=== PATIENT | female | born 1955 | race Two or more races ===

== ENCOUNTER 2022-10-26 08:52 | Emergency (ER) | payer MEDICARE, SELFPAY ==
--- NOTE | ~2022-10-26 | US_ITS ---
EXAMINATION: US ABDOMEN LIMITED CLINICAL INFORMATION: Right upper quadrant tenderness. COMPARISON: None TECHNIQUE: Real-time imaging of the right upper quadrant abdominal viscera. FINDINGS: PANCREAS: Normal. LIVER: The liver is normal in size. The liver contour is normal. Parenchymal echogenicity is normal. There is a 1.1 x 0.8 x 1.2 cm simple cyst in the right lobe of the liver. There is no intrahepatic biliary duct dilatation seen. GALLBLADDER: Gallbladder is upper normal in size. There is a large gallstone in the neck of the gallbladder measuring approximately 2.8 cm. The gallbladder wall appears thickened measuring up to 0.5 cm. There is gallbladder wall edema. There is echogenic nonmobile material, partially calcified, adjacent to the gallbladder wall question representing tumefactive sludge and small stones. It is difficult to exclude gallbladder wall mass and calcification. COMMON BILE DUCT: Normal in caliber measuring 0.5 cm in diameter. RIGHT KIDNEY: Normal. No hydronephrosis. No renal calculi or focal parenchymal lesions. The kidney measures 9.6 cm in maximum dimension. FREE FLUID: None. US/US abdomen limited IMPRESSION: Upper normal-size gallbladder with large gallstone in the neck of the gallbladder and abnormal appearing gallbladder wall. Appearance is suggestive of acute cholecystitis. Question tumefactive sludge and small stones adherent to the gallbladder wall versus gallbladder wall mass and calcification. Small liver cyst. Findings will be communicated by the [place] work flow timber framer helper.
[2022-10-26 08:56] VITALS: BP 154/75; PULSE 96; RESP 16; TEMP 36.7; O2SAT 95; BMI 30.9
[2022-10-26 09:20] LABS: Hematocrit 40.2 % (37.0-47.0); Mean Corpuscular HGB Conc 32.3 g/dl (31.0-35.0); Mean Corpuscular Hemoglobin 28.4 pg (27.0-33.0); Mean Corpuscular Volume 87.8 fL (80.0-98.0); PLT CLUMP 1; Red Blood Count 4.58 X10*6/uL (4.20-5.50); Red Cell Distribution Width 12.6 % (11.0-16.0); WBC ABN SCTR FOR CBC 1
[2022-10-26 09:37] LABS: Alanine Aminotransferase 14 U/L (0-31); Albumin Level 4.1 g/dL (3.5-5.0); Alkaline Phosphatase 58 U/L (39-117); Anion Gap 13 (12-20); Aspartate Amino Transferase 16 U/L (5-31); Band Neutrophils Percent 0 % (3-5); Bilirubin Direct 0.2 mg/dL (0.0-0.5); Bilirubin Total 0.4 mg/dL (0.0-1.0); Blood Urea Nitrogen 14 mg/dL (9-16); Calcium 10.3 mg/dL (8.4-10.2); Carbon Dioxide 30 mmol/L (22-29); Chloride 100 mmol/L (96-108); Estimated Glomerular Filt Rate > 60; Glucose Random 129 mg/dL (60-115); Lymphocytes Percent Manual 34 % (20-40); Monocytes Percent Manual 2 % (2-11); Neutrophils Percent Manual 64 % (45-73); Potassium 3.4 mmol/L (3.3-5.1); Sodium 140 mmol/L (135-145); Total Protein 7.4 g/dL (6.5-8.0)
[2022-10-26 09:40] LABS: Lymphocytes Absolute Manual 2.9 X10*3/uL (1.2-4.9); Monocytes Absolute Manual 0.2 X10*3/uL (0.1-1.2); Neutrophils Absolute Manual 5.4 X10*3/uL (2.0-8.3); Platelet Count 154 X10*3/uL (160-400); Platelet Estimate NORMAL (NORMAL); Platelet Morphology Comment NORMAL; RBC Morphology NORMAL; White Blood Count 8.5 X10*3/uL (4.8-10.8)
[2022-10-26 10:21] VITALS: BP 154/68; PULSE 77; RESP 16; O2SAT 98
--- NOTE | 2022-10-26 10:23 | PC.NURSE ---
Addendum entered by Susanne Garcia 10/26/22 11:42: all needs met at this time; awaiting imaging; denies questions/concerns; daughter at bedside. call [place]ilton within reach. Original Note: pt axox4, vss, respirations even and unlabored, sats 98% on RA, skin warm and dry color appropriate to ethnicity. Greek speaking- heating and ventilating drafter to bedside. sensor operator cecily to bedside. pt reports nausea, diarrhea, burning sensation in stomach after eating x 1 wk. +bsx4; no abd. distention/tenderness upon palpation.
--- NOTE | 2022-10-26 10:29 | ED.GENADULT ---
HPI - General Adult General Chief complaint: Nausea/Vomiting/Diarrhea Stated complaint: Nausea Vomiting Diarrhea Time Seen by Provider: 10/26/22 10:08 Source: patient, family (daughter) and talent acquisition consultant Mode of arrival: ambulatory Limitations: language barrier History of Present Illness HPI narrative: Patient is a 67-year-old Hungarian-speaking female with history of HTN, fatty liver presenting to the emergency department with 1 week of right upper quadrant abdominal pain, nausea, vomiting, diarrhea, decreased appetite and weight loss. States has lost 9 pounds over the past week. Denies fevers. Denies blood in emesis or stool, denies dark, tarry stool. Denies chest pain or shortness of breath. Denies dizziness/lightheadedness or syncope. Denies prior abdominal surgeries. States symptoms worsen with eating spicy/greasy foods. Symptoms began after returning from [place]. [place] in [place]. MD complaint: abdominal pain, vomiting, diarrhea Onset (ago): week(s) Location: abdomen Radiation: non-radiation Severity: severe Quality: sharp Pain Consistency: constant Relieving factors: rest Exacerbating factors: other (palpation) Associated symptoms: loss of appetite, nausea/vomiting and other (diarrhea, weight loss) Treatments prior to arrival: none Related Data Home Medications Medication Instructions Recorded Confirmed atorvastatin 40 mg tablet 40 mg PO BEDTIME 10/26/22 10/26/22 hydrochlorothiazide 25 mg tablet 25 mg PO DAILY 10/26/22 10/26/22 losartan 50 mg tablet 50 mg PO DAILY 10/26/22 10/26/22 metformin 500 mg tablet 500 mg PO DAILY 10/26/22 10/26/22 Previous Rx's Medication Instructions Recorded ondansetron 4 mg disintegrating 4 mg PO Q8H PRN nausea and 10/26/22 tablet vomiting #12 tabs Allergies Allergy/AdvReac Type Severity Reaction Status Date / Time No Known Allergies Allergy Verified 10/26/22 09:03 Review of Systems Review of Systems: As per HPI. Yes all other systems are reviewed and are negative Constitutional: Constitutional: Reports as per HPI [facility] Social History Social History Alcohol intake: current Alcohol intake frequency: holidays/special occasions only Smoked in Last 30 Days: No Use of substances other than those prescribed or required for medical reasons: No Advance Directives: No Advance Directives Information Provided: Yes Physical Exam ED Vital Signs: Vital Signs - 24 hr 10/26/22 08:56 10/26/22 10:21 10/26/22 14:00 Temperature 98.0 F 98.2 F Pulse Rate 96 77 82 Respiratory Rate 16 16 16 Blood Pressure 154/75 H 154/68 H 165/86 H Pulse Oximetry 95 98 96 Oxygen Delivery Method Room Air Room Air Room Air BMI result Body Mass Index 30.9 Vital signs have been reviewed and appear to be correct. Blood pressure elevated. Heart rate normal. Respiratory rate normal. Temperature normal. Oxygen saturation normal. Const General: cooperative, healthy appearing and no acute distress Orientation/consciousness: oriented to person, oriented to place, oriented to time and patient oriented x3 Limitations: no limitations HENMT Head: Yes normocephalic and Yes atraumatic Ears: external ears normal General nose exam: Normal external nose present Face and sinus: Yes face symmetric Mouth: oropharynx normal and moist mucous membranes Throat: Yes uvula midline Eyes Pupils: Equal, round and reactive pupils present Neck Neck: Yes normal visual inspection and Yes supple Resp Effort & Inspection: normal respiratory effort and able to speak in complete sentences Auscultation: clear to auscultation bilaterally Cardio Rate: regular rate Rhythm: regular rhythm Heart sounds: S1 normal heart sound present and S2 normal heart sound present GI Inspection: Yes normal to inspection Palpation (GI): Soft to palpation, Tenderness to palpation present (GI) in the RUQ, no guarding and No Rebound tenderness present Auscultation: normoactive bowel sounds General: Yes no CVA tenderness Back/Spine/Pelvis Back: no CVA tenderness Skin General skin exam: elasticity normal and turgor normal Neuro General: oriented to person, oriented to place, oriented to time, patient oriented x3, moves all extremities, no focal motor deficits and CN's II-XI intact bilaterally Cranial nerves: Yes Equal, round and reactive pupils present Cognition (Neuro): normal cognition Extrem General: Yes full ROM, Yes no pedal edema and Yes no calf tenderness Psych Mental Status: mental status grossly normal Affect: normal affect Thought process: Normal thought process present Medical Decision Making Medical Decision Making MDM Narrative: Patient is a 67-year-old Hungarian-speaking female with history of HTN, fatty liver presenting to the emergency department with 1 week of right upper quadrant abdominal pain, nausea, vomiting, diarrhea, decreased appetite and weight loss. On exam patient is awake, A+Ox3, VS WNL, afebrile, normal neurological exam without focal deficits, abdomen soft, tender to palpation right upper quadrant, otherwise nontender, no guarding or rebound tenderness. Given reported symptoms and physical exam findings, initial differential includes biliary colic, acute cholecystitis, choledocholithiasis, gastroenteritis. Plan: labs, RUQ U/S, UA. Labs notable for no leukocytosis, LFTs normal, mildly elevated lipase likely related to known fatty liver disease. UA shows 2+ leukocytes, 6-10 WBCs, 1+ bacteria however patient denies any urinary symptoms. Ultrasound notable for large stone in the neck of the gallbladder suggestive of acute cholecystitis, also question sludge and small stones adherent gallbladder wall versus gallbladder wall mass/calcification. My interpretation is in agreement with the radiologist's interpretation. [place] text to Dr. Hilario. 14:24 Dr. Hilario states that he saw patient with assistance of talent acquisition consultant. Patient reports known history of gallstones. He feels symptoms are more likely related to acute gastroenteritis rather than acute cholecystitis and patient is stable for discharge home. Discussed with patient to ensure adequate fluid intake. Will prescribe Zofran for nausea. Can use immodium for diarrhea. Return precautions discussed at bedside. Patient and daughter verbalized understanding of and agreement with plan. Differential Diagnosis Differential Diagnoses: The differential diagnosis associated with the presentation includes As per MDM. Admission/Observation Consideration of admission/observation: Escalation of care including admission/observation considered Consult Healthcare Provider Management of the patient was discussed with: Food Service (Dr. Hilario) Lab Data [facility] Lab Attestation statement: I reviewed the patient's lab results. As per MDM. 10/26/22 09:11 10/26/22 09:11 Labs: Lab Results 10/26/22 10/26/22 10/26/22 Range/Units 09:11 09:11 11:25 WBC 8.5 (4.8-10.8) X10*3/uL RBC 4.58 (4.20-5.50) X10*6/uL Hgb 13.0 (12.0-16.0) g/dl Hct 40.2 (37.0-47.0) % MCV 87.8 (80.0-98.0) fL MCH 28.4 (27.0-33.0) pg MCHC 32.3 (31.0-35.0) g/dl RDW 12.6 (11.0-16.0) % Plt Count 154 L (160-400) X10*3/uL MPV Not Reportable Immature Gran % (Auto) Cancelled Neut % (Auto) Cancelled Lymph % (Auto) Cancelled [place] % (Auto) Cancelled Eos % (Auto) Cancelled Baso % (Auto) Cancelled Lymph # (Auto) Cancelled [place] # (Auto) Cancelled Eos # (Auto) Cancelled Baso # (Auto) Cancelled Abs Immat Gran (auto) Cancelled Absolute Neuts (auto) Cancelled Absolute Nucleated RBC 0.000 (0.0-0.012) X10*3/uL Nucleated RBC % (auto) 0.0 (0.0-0.2) /100WBC Neutrophils % (Manual) 64 (45-73) % Band Neutrophils % 0 L (3-5) % Lymphocytes % (Manual) 34 (20-40) % Monocytes % (Manual) 2 (2-11) % Abs Neuts (Manual) 5.4 (2.0-8.3) X10*3/uL Lymphocytes # (Manual) 2.9 (1.2-4.9) X10*3/uL Monocytes # (Manual) 0.2 (0.1-1.2) X10*3/uL Platelet Estimate NORMAL (NORMAL) Plt Morphology Comment NORMAL RBC Morphology NORMAL Sodium 140 (135-145) mmol/L Potassium 3.4 (3.3-5.1) mmol/L Chloride 100 (96-108) mmol/L Carbon Dioxide 30 H (22-29) mmol/L Anion Gap 13 (12-20) BUN 14 (9-16) mg/dL Creatinine 0.79 (0.5-1.4) mg/dL Estim Creat Clear Calc 61.0 Estimated GFR > 60 Random Glucose 129 H (60-115) mg/dL Estimat Average Glucose mg/dL Hemoglobin A1c % % Calcium 10.3 H (8.4-10.2) mg/dL Magnesium 2.0 (1.6-2.6) mg/dL Total Bilirubin 0.4 (0.0-1.0) mg/dL Direct Bilirubin 0.2 (0.0-0.5) mg/dL AST 16 (5-31) U/L ALT 14 (0-31) U/L Alkaline Phosphatase 58 (39-117) U/L Total Protein 7.4 (6.5-8.0) g/dL Albumin 4.1 (3.5-5.0) g/dL Lipase 82 H (8-78) U/L Urine Color Yellow Urine Appearance Clear Urine pH 7.5 (5.0-9.0) Ur Specific [place] 1.015 (1.005-1.025) Urine Protein Negative (Neg-Trace) mg/dL Urine Glucose (UA) Negative (Negative) mg/dL Urine Ketones Negative (Negative) mg/dL Urine Blood Trace H (Negative) Urine Nitrite Negative (Negative) Ur Leukocyte Esterase Moderate (2+) H (Negative) Urine RBC 6-10 H (0-2) /HPF Urine WBC 6-10 H (0-5) /HPF Ur Squamous Epith Cells 6-10 (0-2) /HPF Urine Bacteria 1+ (None Seen) Hyaline Casts 0-2 (0-2) /LPF 10/26/22 Range/Units 14:00 WBC (4.8-10.8) X10*3/uL RBC (4.20-5.50) X10*6/uL Hgb (12.0-16.0) g/dl Hct (37.0-47.0) % MCV (80.0-98.0) fL MCH (27.0-33.0) pg MCHC (31.0-35.0) g/dl RDW (11.0-16.0) % Plt Count (160-400) X10*3/uL MPV Immature Gran % (Auto) Neut % (Auto) Lymph % (Auto) [place] % (Auto) Eos % (Auto) Baso % (Auto) Lymph # (Auto) [place] # (Auto) Eos # (Auto) Baso # (Auto) Abs Immat Gran (auto) Absolute Neuts (auto) Absolute Nucleated RBC (0.0-0.012) X10*3/uL Nucleated RBC % (auto) (0.0-0.2) /100WBC Neutrophils % (Manual) (45-73) % Band Neutrophils % (3-5) % Lymphocytes % (Manual) (20-40) % Monocytes % (Manual) (2-11) % Abs Neuts (Manual) (2.0-8.3) X10*3/uL Lymphocytes # (Manual) (1.2-4.9) X10*3/uL Monocytes # (Manual) (0.1-1.2) X10*3/uL Platelet Estimate (NORMAL) Plt Morphology Comment RBC Morphology Sodium (135-145) mmol/L Potassium (3.3-5.1) mmol/L Chloride (96-108) mmol/L Carbon Dioxide (22-29) mmol/L Anion Gap (12-20) BUN (9-16) mg/dL Creatinine (0.5-1.4) mg/dL Estim Creat Clear Calc Estimated GFR Random Glucose (60-115) mg/dL Estimat Average Glucose 117 mg/dL Hemoglobin A1c % 5.7 % Calcium (8.4-10.2) mg/dL Magnesium (1.6-2.6) mg/dL Total Bilirubin (0.0-1.0) mg/dL Direct Bilirubin (0.0-0.5) mg/dL AST (5-31) U/L ALT (0-31) U/L Alkaline Phosphatase (39-117) U/L Total Protein (6.5-8.0) g/dL Albumin (3.5-5.0) g/dL Lipase (8-78) U/L Urine Color Urine Appearance Urine pH (5.0-9.0) Ur Specific [place] (1.005-1.025) Urine Protein (Neg-Trace) mg/dL Urine Glucose (UA) (Negative) mg/dL Urine Ketones (Negative) mg/dL Urine Blood (Negative) Urine Nitrite (Negative) Ur Leukocyte Esterase (Negative) Urine RBC (0-2) /HPF Urine WBC (0-5) /HPF Ur Squamous Epith Cells (0-2) /HPF Urine Bacteria (None Seen) Hyaline Casts (0-2) /LPF Independent Interpretation I performed an independent interpretation of an: Ultrasound Radiology Impression Discussion of test interpretation with radiology: I have reviewed the radiologist's reading. Independent Historian Clinical information obtained from an independent historian. History obtained from or confirmed by: Other (Daughter) External Record Review External record reviewed: Inpatient record, Office record and Outpatient record Discharge Plan Discharge Clinical Impression: Gastroenteritis, Gallstones Patient Disposition: Home, Self-Care Instructions: Gastroenteritis (DC) Additional Instructions: You have been evaluated in the emergency department today for nausea, vomiting, and diarrhea. Your evaluation suggests that your symptoms are most likely due to a viral illness which will improve on it's own with rest and fluids. Remember to drink plenty of fluids at home. You are being prescribed ondansetron which you can use as per the prescription instructions for nausea. You can also use Immodium for diarrhea which is over the counter. Please follow up with your primary care provider within two days. Return to the emergency department if you experience worsening or uncontrolled pain, inability to tolerate fluids by mouth, difficulty breathing, fevers 100.4? F or greater, recurrent vomiting, or any other concerning symptoms. You can also follow up with gastroenterology for worsening pain. Prescriptions: New ondansetron 4 mg tablet,disintegrating 4 mg PO Q8H PRN (Reason: nausea and vomiting) Qty: 12 0RF No Action losartan 50 mg Tablet 50 mg PO DAILY atorvastatin 40 mg Tablet 40 mg PO BEDTIME metformin 500 mg Tablet 500 mg PO DAILY hydrochlorothiazide 25 mg Tablet 25 mg PO DAILY Referrals: [facility] [place] [place] [facility] [Provider Group] Print Language: Hungarian
[2022-10-26 11:02] LABS: Lipase 82 U/L (8-78)
[2022-10-26 11:36] LABS: Appearance Urine Clear; Color Urine Yellow; Glucose Urine UA Negative (Negative); Leukocyte Esterase Urine Moderate (2+) (Negative); Nitrite Urine Negative (Negative); PH 7.5 (5.0-9.0); Specific Gravity - Urine 1.015 (1.005-1.025); UMIC TRIGGER UACC YES; Urine Blood Trace (Negative); Urine Ketones Negative (Negative); Urine Protein Negative (Neg-Trace)
[2022-10-26 11:40] LABS: Bacteria Urine 1+ (None Seen); Hyaline Casts Urine 0-2 /LPF (0-2); UACC Culture Trigger YES
[2022-10-26 14:00] VITALS: BP 165/86; PULSE 82; RESP 16; TEMP 36.8; O2SAT 96
[2022-10-26 14:31] LABS: Estimated Average Glucose 117 mg/dL; Hemoglobin A1c % 5.7 %
--- NOTE | 2022-10-26 14:33 | PHA.MEDREC ---
Pharmacy Consult ? Medication Reconciliation Pharmacy has completed the medication reconciliation. Utilized representative personal service services. Spoke to patient to confirm meds. Patient attested all RX bottles they had were all their current medications.
--- NOTE | 2022-10-26 14:49 | PM.CNGS ---
History of Present Illness Consult details Consult date: 10/26/22 Reason for consult: gallstones Narrative: The patient is a 67-year-old woman who is South African-speaking only. She is seen with the help of interpretive services with her daughter at her bedside. Patient notes a personal history of gallstones, pre diabetes, hypertension, hypercholesterolemia, arthritis and is visiting from [place] where these diagnoses were made. Via workday director, she reports that she started having nausea, vomiting and diarrhea and then had some abdominal pain. An abdominal ultrasound showing cholelithiasis and edematous gallbladder wall was obtained, but at this time, the patient denies any abdominal pain. The patient and her daughter note that she has been having vomiting and diarrhea for about a week. Patient's past surgical history includes an open tubal Social history is remarkable for occasionally drinking, she denies any nicotine use Review of Systems Review of Systems: Yes all other systems are reviewed and are negative Constitutional: Constitutional: Reports as per [facility] Past Medical History Functional capacity: independent ambulation Social History Social History Alcohol intake: current Alcohol intake frequency: holidays/special occasions only Smoked in Last 30 Days: No Use of substances other than those prescribed or required for medical reasons: No Advance Directives: No Advance Directives Information Provided: Yes Meds Allergies Allergy/AdvReac Type Severity Reaction Status Date / Time No Known Allergies Allergy Verified 10/26/22 09:03 Active Medications: Current Medications Pharmacy Consult (Consult Rx Perform Med Rec) 1 each MISCELLANE ONCE PRN PRN Reason: Consult order Home Medications Medication Instructions Recorded Confirmed Last Taken Type atorvastatin 40 mg tablet 40 mg PO BEDTIME 10/26/22 10/26/22 10/25/22 History hydrochlorothiazide 25 mg tablet 25 mg PO DAILY 10/26/22 10/26/22 10/25/22 History losartan 50 mg tablet 50 mg PO DAILY 10/26/22 10/26/22 10/25/22 History metformin 500 mg tablet 500 mg PO DAILY 10/26/22 10/26/22 10/25/22 History Physical Exam Vital Signs: Vital Signs: Last Vital Signs Temp 98.2 F 10/26/22 14:00 Pulse 82 10/26/22 14:00 Resp 16 10/26/22 14:00 BP 165/86 H 10/26/22 14:00 Pulse Ox 96 10/26/22 14:00 O2 Del Method Room Air 10/26/22 14:00 BMI result Body Mass Index 30.9 On exam, the patient is nontoxic Her sclera anicteric She is in no acute respiratory distress Heart is regular, lungs are clear and equal Abdomen is overweight but soft with no right upper quadrant tenderness. No rebound, rigidity or guarding is noted Results Labs 10/26/22 09:11 10/26/22 09:11 Labs: Abnormal lab results 10/26/22 10/26/22 10/26/22 Range/Units 09:11 09:11 11:25 Plt Count 154 L (160-400) X10*3/uL Band Neutrophils % 0 L (3-5) % Carbon Dioxide 30 H (22-29) mmol/L Random Glucose 129 H (60-115) mg/dL Calcium 10.3 H (8.4-10.2) mg/dL Lipase 82 H (8-78) U/L Urine Blood Trace H (Negative) Ur Leukocyte Esterase Moderate (2+) H (Negative) Urine RBC 6-10 H (0-2) /HPF Urine WBC 6-10 H (0-5) /HPF Short CBC 10/26/22 Range/Units 09:11 WBC 8.5 (4.8-10.8) X10*3/uL Hgb 13.0 (12.0-16.0) g/dl Hct 40.2 (37.0-47.0) % Plt Count 154 L (160-400) X10*3/uL BMP 10/26/22 09:11 Sodium 140 Potassium 3.4 Chloride 100 Carbon Dioxide 30 H BUN 14 Creatinine 0.79 Calcium 10.3 H Liver Function 10/26/22 Range/Units 09:11 Total Bilirubin 0.4 (0.0-1.0) mg/dL Direct Bilirubin 0.2 (0.0-0.5) mg/dL AST 16 (5-31) U/L ALT 14 (0-31) U/L Alkaline Phosphatase 58 (39-117) U/L Albumin 4.1 (3.5-5.0) g/dL Urine 10/26/22 Range/Units 11:25 Urine Color Yellow Urine Appearance Clear Urine pH 7.5 (5.0-9.0) Ur Specific [place] 1.015 (1.005-1.025) Urine Protein Negative (Neg-Trace) mg/dL Urine Glucose (UA) Negative (Negative) mg/dL All other labs normal. Imaging Abdominal ultrasound report/results: report reviewed and image reviewed Assessment and Plan (1) Gastroenteritis: Status: Acute (2) Borderline diabetic: Status: Acute (3) Cholelithiasis: Status: Acute (4) HTN (hypertension): Status: Acute (5) Hypercholesterolemia: Status: Acute Plan Via workday director, the patient endorsed nausea, vomiting and diarrhea. At the time of her exam, there is no right upper quadrant pain to palpation. I suspect the patient has some sort of gastroenteritis and the lack of tenderness on physical exam, lack of leukocytosis is inconsistent after a week is inconsistent with acute cholecystitis. Via workday director, I explained that this likely represents some sort of gastroenteritis and I agree with her physicians in [place] who advised her to continue to watch her gallstones since there is no clear indication for surgery at this time. This was communicated with the ER staff. Time Spent With Patient Time: Total time managing care of this patient today ____ minutes. Procedures Date of Service Date of Service: 10/26/22
== END 2022-10-26 15:28 | disposition home or self-care (01) ==
PROVIDERS: Registered Nurse Emergency; Surgery; Emergency Provider Emergency Medicine
DX: K52.9 Noninfective gastroenteritis and colitis, unspecified (principal); K80.20 Calculus of gallbladder without cholecystitis without obstruction; R10.11 Right upper quadrant pain; E78.00 Pure hypercholesterolemia, unspecified; I10 Essential (primary) hypertension; R73.03 Prediabetes; R11.2 Nausea with vomiting, unspecified; Z79.899 Other long term (current) drug therapy
CPT/HCPCS: 36415; 76705; 80048; 80076; 81001; 83036; 83690; 83735; 85007; 85027; 87086; 99284

== ENCOUNTER → 2022-10-26 10:23 | Outpatient (BNV) | payer MEDICARE, SELFPAY | PROVIDERS: Emergency Provider Emergency Medicine; Visit Provider Surgery | DX: K52.9 Noninfective gastroenteritis and colitis, unspecified (principal); R73.03 Prediabetes; K80.20 Calculus of gallbladder without cholecystitis without obstruction; I10 Essential (primary) hypertension; E78.00 Pure hypercholesterolemia, unspecified | CPT/HCPCS: 99284 ==

== ENCOUNTER 2024-06-15 09:53 | Outpatient (REF) | payer OTHER, SELFPAY ==
[2024-06-15 13:47] LABS: Estimated Average Glucose 120 mg/dL; Hemoglobin A1C 130.3328 umol/L; Hemoglobin A1c % 5.8 % (<6.0); Total Hemoglobin (HGBA1C) 3288.6872 umol/L
[2024-06-15 13:58] LABS: Alanine Aminotransferase 11 U/L (0-31); Albumin Level 4.4 g/dL (3.5-5.0); Alkaline Phosphatase 64 U/L (39-117); Anion Gap 10 (12-20); Aspartate Amino Transferase 22 U/L (5-31); Bilirubin Total 0.5 mg/dL (0.0-1.0); Blood Urea Nitrogen 15 mg/dL (9-16); Calcium 10.1 mg/dL (8.4-10.2); Carbon Dioxide 30 mmol/L (22-29); Chloride 105 mmol/L (96-108); Cholesterol 217 mg/dL (<200); Estimated Glomerular Filt Rate > 60; Glucose Random 101 mg/dL (60-115); HDL Cholesterol 80 mg/dL (>40); LDL Cholesterol Calculated 125 mg/dL (<100); Sodium 141 mmol/L (135-145); Total Protein 7.4 g/dL (6.5-8.0); Triglycerides 64 mg/dL (<150)
[2024-06-15 14:16] LABS: Thyroid Stimulating Hormone 1.55 uIU/mL (0.32-4.0)
[2024-06-15 14:17] LABS: Creatinine Urine 166.31 mg/dL
[2024-06-15 14:26] LABS: Folate 13.3 ng/mL (> or = 4.0); Vitamin B12 514 pg/mL (200-900)
== END 2024-06-15 09:54 | disposition home or self-care (01) ==
LOC: HO.10HDL 09:53
PROVIDERS: Visit Provider Internal Medicine
DX: E11.9 Type 2 diabetes mellitus without complications (principal); E78.00 Pure hypercholesterolemia, unspecified; F02.80 Dementia in other diseases classified elsewhere, unspecified severity, without behavioral disturbance, psychotic disturbance, mood disturbance, and anxiety; G25.0 Essential tremor; I10 Essential (primary) hypertension; M25.512 Pain in left shoulder; R05.9 Cough, unspecified
CPT/HCPCS: 36415; 80053; 80061; 82043; 82570; 82607; 82746; 83036; 84443

== ENCOUNTER 2024-08-09 12:29 | Outpatient (REF) | payer OTHER, SELFPAY ==
--- OUTSIDE RECORDS SUMMARY | 2024-08-09 13:00 | XMS_ITS | Patient Health Record ---
Author Organization [facility] Address [address] [place] [address] Care Team Providers Care Sales Engineer Name Role Phone Kristi Perkins Primary Care Provider UnavailHunter Velez [phone] Allergies No Known Allergies Reason For Referral No Information Medications Medication SIG (Take, Route, Frequency, Duration) Notes Start Date End Date Status Losartan Potassium 50 MG Oral for 90 Days Active Loratadine 10 MG TAKE 1 TABLET BY LIVE TH EVERY DAY Oral for 90 Days Active Multivitamin Active Calcium Active Dulcolax (colon prep) 5 MG take at 3:00 p.m and 7:00p.m. Orally two tablets twice a day for one day for 1 days 07/29/2024 Active MiraLax (colon prep) 17 GM/SCOOP 1 238 Gm bottle mixed with Gatorade or Crystal Light orally begin at 5:00 p.m. the day before the procedure for 1 days 07/29/2024 Active metFORMIN HCl 500 MG Oral for 90 Days Active Atorvastatin Calcium 40 MG Oral for 90 Days Active Problems Problem Type SNOMED Code ICD Code Onset Dates Problem Status W/U Status Risk Notes Problem Gallstones (261562348) Gallstones (574.20) Active confirmed Problem Colon cancer screening (756767880) Colon cancer screening (V76.51) Active confirmed Problem Fatty liver (862657178) Fatty liver (571.8) Active confirmed Problem Gallstones (944952226) Gallstones (K80.20) Active confirmed Problem Abnormal feces (761398364) Positive colorectal cancer screening using Cologuard test (R19.5) Active confirmed Vital Signs Blood pressure diastolic 77 mm Hg 07/26/2024 Height 58.5 in 07/26/2024 Blood pressure systolic 111 mm Hg 07/26/2024 Weight 140 lbs 07/26/2024 BMI 28.76 kg/m2 07/26/2024 Procedures Procedure Date Ordered Date Performed Result Body Sit e COLONOSCOPY 07/26/2024 N/A Encounters Encounter Location Date Provider Diagnosis [facility] [address] [place] [address] 07/26/2024 Hunter Chapman Positive colorectal cancer screening using Cologuard test R19.5 and Gallstones K80.20 [facility] [address] [place] [address] 07/26/2024 Hunter Chapman Assessments Encounter Date Diagnosis (ICD Code) Assessment Notes Treatment Notes Treatment Clinical Notes Section Notes 07/26/2024 Gallstones (ICD-10 - K80.20) Overall, Yanci appears quite well. Given her age, excellent clinical appearance, well over 10 years since her last colonoscopy, and the positive Cologuard test, I did advise her of the need for a colonoscopy for further evaluation. We did review the rationale for this in regard to colorectal cancer prevention and/or early detection. Full consent has been taken from her for this, including risks of bleeding and perforation. The procedure will be done with monitored anesthesia care. She was given the below instruction regarding adjustment of her medication for the procedure. We also discussed her gallstones and potential symptoms of that with need for surgical evaluation. At this point she has remained asymptomatic. Yanci and her granddaughter were comfortable with this plan. Thank you again for allowing me to participate in Yanci's care. I shall continue to keep you advised of her progress.. 07/26/2024 Positive colorectal cancer screening using Cologuard test (ICD-10 - R19.5) Overall, Yanci appears quite well. Given her age, excellent clinical appearance, well over 10 years since her last colonoscopy, and the positive Cologuard test, I did advise her of the need for a colonoscopy for further evaluation. We did review the rationale for this in regard to colorectal cancer prevention and/or early detection. Full consent has been taken from her for this, including risks of bleeding and perforation. The procedure will be done with monitored anesthesia care. She was given the below instruction regarding adjustment of her medication for the procedure. We also discussed her gallstones and potential symptoms of that with need for surgical evaluation. At this point she has remained asymptomatic. Yanci and her granddaughter were comfortable with this plan. Thank you again for allowing me to participate in Yanci's care. I shall continue to keep you advised of her progress.. Plan Of Treatment Pending Test Test Name Order Date COLONOSCOPY 07/26/2024 Next Appt Details Provider Name:Hunter Chapman , 09/24/2024 02:20:00 PM, [address] [place] [address] , [place], [place], [phone], Insurance Providers Payer Name Payer Address Payer Phone Subscriber Number Group Number Insured Name Patient Relationship to Insured Coverage Start Date Coverage End Date [facility] [address] [place] [phone] [id number] YANCI ORTIZ Self - patient is the insured MEDICAID OF [facility] [address] [place] [address] [id number] YANCI ORTIZ Self - patient is the insured Medical (General) History Medical History History ICD Code HTN Denies OH,CVA,Lung disease,renal disease Neg. screening colonoscopy w ith Dr. Self in 07/2009, except for diverticulosis Gallstones and fatty liver s een on U/S and MRI --normal biliary tree and no mass Hyperlipidemia NIDDM Surgical History Surgery Date(Month/Year) Tubal ligation
--- OUTSIDE RECORDS SUMMARY | 2024-08-09 13:00 | XMS_ITS ---
Author Organization [facility] Address [address] [place] [address] Care Team Providers Care Credit Card Control Clerk Name Role Phone Kristi Perkins Primary Care Provider Unavailab Hunter Quiroga [phone] REASON FOR VISIT bowel prep Medications Medication SIG (Take, Route, Frequency, Duration) Notes Start Date End Date Status Dulcolax (colon prep) 5 MG take at 3:00 p.m and 7:00p.m. Orally two tablets twice a day for one day for 1 days 07/29/2024 Active MiraLax (colon prep) 17 GM/SCOOP 1 238 Gm bottle mixed with Gatorade or Crystal Light orally begin at 5:00 p.m. the day before the procedure for 1 days 07/29/2024 Active Encounters Encounter Location Date Provider Diagnosis [address] [address] 07/26/2024 Hunter Chapman Plan Of Treatment Medication Medication Name Sig Start Date Stop Date Notes Dulcolax (colon prep) 5 MG take at 3:00 p.m and 7:00p.m. Orally two tablets twice a day for one day for 1 days 07/29/2024 MiraLax (colon prep) 17 GM/SCOOP 1 238 Gm bottle mixed with Gatorade or Crystal Light orally begin at 5:00 p.m. the day before the procedure for 1 days 07/29/2024 Next Appt Details Provider Name:Hunter Chapman , 09/24/2024 02:20:00 PM, [address] [place] [address] , [place], [place], [phone], Progress Notes * EDUARDO ORTIZDOB:1955 (69 yo F)Acc No.[id number]:07/26/2024 Patient:EDUARDO ZAPATA :1955???Age:69 Y???Sex:Female Address:[address] [place] [address] [place], [address] * Refills? Start Dulcolax (colon prep) Tablet Delayed Release, 5 MG, Orally, 4, take at 3:00 p.m and 7:00p.m., two tablets twice a day for one day, 1 days, Refills=0 Start MiraLax (colon prep) Powder, 17 GM/SCOOP, orally, 1, 1 238 Gm bottle mixed with Gatorade or Crystal Light, begin at 5:00 p.m. the day before the procedure, 1 days, Refills=0 * true * Date:? Generated for Luis bennett/Naomi/Aramitting on:?08/09/2024 01:00 PM EDT
--- OUTSIDE RECORDS SUMMARY | 2024-08-09 13:00 | XMS_ITS | Clinical Summary ---
Author Organization [facility] Address [address] [place] [address] Care Team Providers Care Fire Operations Forester Name Role Phone Unavailable Primary Care Provider Unavailabl e Social History Tobacco Use Types Packs/Day Years Used Date Smoking Tobacco: Never Assessed Comments Unknown Sex and Gender Information Value Date Recorded Sex Assigned at Female 01/18/2022 10:15 AM EDT Legal Sex Female 10:15 AM EDT Gender Identity Not on file Sexual Orientation Not on file Plan of Treatment Health Maintenance Due Date Last Done Comments CT Colonography 1955 Colonoscopy 1955 Colorectal Cancer Screening 1955 Depression Screening 1955 FIT DNA/Cologuard 1955 FIT 1955 FOBT 1955 Sigmoidoscopy 1955 Alcohol/Substance Use Screening 1967 Tobacco Screening 1967 DTaP/Tdap/Td Vaccines (1 - Tdap) 1974 Mammogram 1995 Pneumococcal Vaccine: 50+ Ye ars (1 of 1 - PCV) 2005 Zoster Vaccines (1 of 2) 2005 COVID-19 Vaccine (1 - 2023-2 5 season) 2023 Influenza Vaccine (#1) 2023 RSV Patients and Pa tients Aged 60 years or older (1 - 1-dose 75+ series) 2030 HIB Vaccines Aged Out No longer eligi ble based on patient's age to complete this topic HPV Vaccines Aged Out No longer eligi ble based on patient's age to complete this topic Hepatitis A Vaccines Aged Out No long er eligible based on patient's age to complete this topic Hepatitis B Vaccines Aged Out No long er eligible based on patient's age to complete this topic IPV Vaccines Aged Out No longer eligi ble based on patient's age to complete this topic Meningococcal B Vaccine Aged Out No l onger eligible based on patient's age to complete this topic Meningococcal Vaccine Aged Out No pilar julita eligible based on patient's age to complete this topic RSV under 20 months Aged Out No longe r eligible based on patient's age to complete this topic Rotavirus Vaccines Aged Out No longer eligible based on patient's age to complete this topic
--- OUTSIDE RECORDS SUMMARY | 2024-08-09 13:00 | XMS_ITS ---
Author Organization [facility] Address [address] [place] [phone] Care Team Providers Care Appetizer Packer Name Role Phone Kristi Perkins Primary Care Provider Unavailab Hunter Quiroga [phone] Allergies No Known Allergies REASON FOR VISIT Patient presents today for a positive cologuard Medications Medication SIG (Take, Route, Frequency, Duration) Notes Start Date End Date Status Loratadine 10 MG TAKE 1 TABLET BY LIVE TH EVERY DAY Oral for 90 Days Active metFORMIN HCl 500 MG Oral for 90 Days Active Atorvastatin Calcium 40 MG Oral for 90 Days Active Losartan Potassium 50 MG Oral for 90 Days Active Multivitamin Active Calcium Active Problems Problem Type SNOMED Code ICD Code Onset Dates Problem Status W/U Status Risk Notes Problem Abnormal feces (496944818) Positive colorectal cancer screening using Cologuard test (R19.5) Active confirmed Problem Gallstones (699573317) Gallstones (K80.20) Active confirmed Vital Signs Blood pressure systolic 111 mm Hg 07/27/19 25 Blood pressure diastolic 77 mm Hg 025 Height 58.5 in 07/26/2024 Weight 140 lbs 07/26/2024 BMI 28.76 kg/m2 07/26/2024 Procedures Procedure Date Ordered Date Performed Result Body Sit e COLONOSCOPY 07/26/2024 N/A Encounters Encounter Location Date Provider Diagnosis [facility] [address] [place] [phone] 07/26/2024 Hunter Chapman Positive colorectal cancer screening using Cologuard test R19.5 and Gallstones K80.20 Assessments Encounter Date Diagnosis (ICD Code) Assessment Notes Treatment Notes Treatment Clinical Notes Section Notes 07/26/2024 Positive colorectal cancer screening using Cologuard [...] keep you advised of her progress.. 07/26/2024 Gallstones (ICD-10 - K80.20) Overall, Yanci [...] Order Date COLONOSCOPY 07/26/2024 Next Appt Details Follow Up: prn, Reason: Provider Name:Hunter Chapman , 09/24/2024 02:20:00 PM, [address] [place] [address], [phone], Progress Notes * YANCI ORTIZDOB:1955 (69 yo F)Acc No.[id number]:07/26/2024 Progress Notes Patient:?YANCI ORTIZ Provider:?Hunter Chapman MD :1955???Age:69 Y???Sex:Female D ate:07/26/2024 Address[place] Pcp:Kristi Perkins Subjective: * Chief Complaints: * ???Patient presents today fo r a positive cologuard * HPI: ???incontinence:? I saw Yanci in consultation today in regard to further?evaluation of her positive Cologuard test and her underlying history of known gallstones. She was accompanied by her granddaughter, Yahaira, who helped with interpreting. I last saw Yanci in 2014 when I met her for 1 office visit. At that time we discussed colorectal cancer screening, but she had had a negative colonoscopy [place] [address] Self. I therefore advised her to have a repeat exam in 2019. We also reviewed her history of gallstones at that time. They were asymptomatic and therefore she did not require any surgical intervention. She presently feels very well. She enjoys a good appetite and denies any significant heartburn or dysphagia. She denies any abdominal pain, signs of jaundice, nor unintentional weight loss. Her bowel movements been regular and without any hematochezia nor melena. She denies any known family history of colorectal cancer. She has not had a colonoscopy since her 2009 exam. However she did do a Cologuard test and this was returned as positive. Laboratories in May revealed normal chemistries, normal renal function, and normal LFTs. She did have an abdominal ultrasound in 2022 describing her known gallstones but no biliary disease. * ROS:?General/Constitutional:?Change in appetite?denies.?Chills?denies.?Fatigue?denies.?Ophthalmologic:?Comments?all negative.?ENT:?Comments?all negative.?Respiratory:?hemoptysis?denies.?Cough?denies.?Cardiovascular:?Chest pain?denies.?Orthopnea?denies.?Gastrointestinal:?Comments?See HPI for details.?Genitourinary:?Hematuria?denies.?Dysuria?denies.?Musculoskeletal:?Painful joints?denies.?Weakness?denies.?Skin:?Itching?denies.?Rash?denies.?Neurologic:?Headache?denies.?Seizures?denies.?Psychiatric:?Comments?all negative.? * Medical History:? * Surgical History:?Tubal liga tion * Hospitalization/Major Diagno stic Procedure:?No Hospitalization History. * Family History:?Father: dece ased.?Mother: , diagnosed with HTN (hypertension), Diabetes.?Paternal aunt: alive, She had colon cancer in her late 60's, diagnosed with Colon cancer.? No colorectal cancer. * Social History:?Tobacco Use:?Tobacco Use/Smoking?Are you a: nonsmoker.?Drugs/Alcohol:?Alcohol Screen?Points: 0, Interpretation: Negative.?Miscellaneous:?Marital status: single, . Occupation: unemployed. ???Nonsmoker; no sig alcohol. * Medications:?TakingMultivita min Calcium Losartan Potassium 50 MG Tablet Oral Loratadine 10 MG Tablet TAKE 1 TABLET BY MOUTH EVERY DAY Oral Atorvastatin Calcium 40 MG Tablet Oral metFORMIN HCl 500 MG Tablet Oral Taking Multivitamin Taking Calcium Taking Losartan Potassium 50 MG Tablet Oral Taking Loratadine 10 MG Tablet TAKE 1 TABLET BY MOUTH EVERY DAY Oral Taking Atorvastatin Calcium 40 MG Tablet Oral Taking metFORMIN HCl 500 MG Tablet Oral DiscontinuedhydroCHLOROthiazide 12.5 MG Capsule 1 capsule Orally Once a day Omeprazole 20 MG Capsule Delayed Release 1 capsule Orally Once a day Medication List reviewed and reconciled with the patientDiscontinued hydroCHLOROthiazide 12.5 MG Capsule 1 capsule Orally Once a day Discontinued Omeprazole 20 MG Capsule Delayed Release 1 capsule Orally Once a day Medication List reviewed and reconciled with the patient * Allergies:?N.K.D.A.yes[Aller gies Verified] Objective: * Vitals:?Wt:140lbs, Ht: 58.5 in, BMI: 28.76 Index, BP:111/77mm Hg, Wt-k.5. * Examination: ???General Examination: ?GENERAL APPEARANCE:?pleasant, well nourished, well developed, in no acute distress.?EYES:?sclera non-icteric.?ORAL CAVITY:?mucosa moist.?NECK/THYROID:?no cervical lymphadenopathy, neck supple.?SKIN:?nonjaundiced, no spider angiomata.?HEART:?S1, S2 normal.?LUNGS:?clear to auscultation bilaterally.?ABDOMEN:?normal bowel sounds, no guarding or rigidity, no guarding or rigidity, no masses palpable, soft, nontender, nondistended.?EXTREMITIES:?no edema.?NEUROLOGIC:?alert and oriented.? Assessment: * Assessment: 1.?Positive colorectal cance r screening using Cologuard test - R19.5 (Primary)???2.?Gallstones - K80.20??? Overall, Yanci appears quit e well. Given her age, excellent clinical appearance, [...] to keep you advised of her progress.. Plan: * Treatment: * Procedure Codes:?70301 DIAGN OSTIC [id number] COLORECTAL CA SCREEN DOC [id number] TOBACCO [id number] BP SCR NOT PRFRM REC REASON NOS * Preventive Medicine:? ??Counseling:?Care goal follow-up plan:?Above Normal BMI Follow-up?Giving encouragement to exercise,?BMI management provided?Yes.? ??Urinary Incontinence:?Urinary Incontinence?Assessment:?Absent,?Plan of care documented:?No, reason not specified.? ??Screenings:?Fall Risk Screening?Fall Risk Assessment:?One fall without injury in the past year,?Screening:?One fall without injury in the past year,?Assessment:?Not performed, no reason specified,?Plan of Care:?Not documented, no reason specified.? * Follow Up:?prn * * Sign off status: Completed true * Provider:?Hunter Chapman MD Date:? 025 Generated for Luis bennett/Naomi/Cuauhtemoc on:?08/09/2024 01:00 PM EDT History and Physical Notes * HPI (History of Present Illness) Category Sub-Category Detail Notes Category Not es incontinence I saw Yanci in consultation today in regard to further evaluation of her positive Cologuard test and her underlying history of known gallstones. She was accompanied by her granddaughter, Yahaira, who helped with interpreting. I last saw Yanci in 2014 when I met her for 1 office visit. At that time we discussed colorectal cancer screening, but she had had a negative colonoscopy in [address] Self. I therefore advised her to have a repeat exam in 2019. We also reviewed her history of gallstones at that time. They were asymptomatic and therefore she did not require any surgical intervention. She presently feels very well. She enjoys a good appetite and denies any significant heartburn or dysphagia. She denies any abdominal pain, signs of jaundice, nor unintentional weight loss. Her bowel movements been regular and without any hematochezia nor melena. She denies any known family history of colorectal cancer. She has not had a colonoscopy since her 2009 exam. However she did do a Cologuard test and this was returned as positive. Laboratories in May revealed normal chemistries, normal renal function, and normal LFTs. She did have an abdominal ultrasound in 2022 describing her known gallstones but no biliary disease. Examination Category Sub-Category Detail Notes Category Not es General Examination GENERAL APPEARANCE: pleasant , well nourished, well developed, in no acute distress HEAD: EYES: sclera non-icteric EARS: NOSE: THROAT: NECK/THYROID: no cervical lymphade nopathy, neck supple HEART: S1, S2 normal CHEST: LUNGS: clear to auscultatio n bilaterally ABDOMEN: normal bowel sounds, no guarding or rigidity, no guarding or rigidity, no masses palpable, soft, nontender, nondistended NEUROLOGIC: alert and oriented SKIN: nonjaundiced, no spi jimy angiomata EXTREMITIES: no edema PERIPHERAL PULSES: BACK: BREASTS: MUSCULOSKELETAL: MALE GENITOURINARY: LYMPH NODES: RECTAL EXAM: FEMALE GENITOURINARY: ORAL CAVITY: mucosa moist
[2024-08-09 13:12] LABS: MANUAL DIFF FLAG NO
[2024-08-09 13:51] LABS: Estimated Average Glucose 114 mg/dL; Hemoglobin A1C 125.1533 umol/L; Hemoglobin A1c % 5.6 % (<6.0)
[2024-08-09 13:53] LABS: Basophils Percent Auto 0.3 % (0-2); Eosinophils Absolute Auto 0.1 X10*3/uL (0.0-0.4); Hematocrit 37.5 % (37.0-47.0); Hemoglobin 12.4 g/dl (12.0-16.0); Imm Gran Abs Auto 0.03 X10*3/uL (0.00-0.03); Imm Gran Pct Auto 0.5 % (0.0-0.4); Lymphocytes Absolute Auto 1.9 X10*3/uL (1.2-4.9); Lymphocytes Percent Auto 31.1 % (20-40); Mean Corpuscular HGB Conc 33.1 g/dl (31.0-35.0); Mean Corpuscular Hemoglobin 29.2 pg (27.0-33.0); Mean Corpuscular Volume 88.4 fL (80.0-98.0); Mean Platelet Volume 13.5 fL (9.4-12.3); Monocytes Absolute Auto 0.4 X10*3/uL (0.1-1.2); Monocytes Percent Auto 6.9 % (2-11); Neutrophils Absolute Auto 3.7 x10*3/uL (2.0-8.3); Neutrophils Percent Auto 60.2 % (45-73); Platelet Count 131 X10*3/uL (160-400); Red Blood Count 4.24 X10*6/uL (4.20-5.50); Red Cell Distribution Width 12.8 % (11.0-16.0); White Blood Count 6.1 X10*3/uL (4.8-10.8)
[2024-08-09 14:02] LABS: Alanine Aminotransferase 19 U/L (0-31); Albumin Level 4.3 g/dL (3.5-5.0); Alkaline Phosphatase 60 U/L (39-117); Anion Gap 9 (12-20); Aspartate Amino Transferase 22 U/L (5-31); Bilirubin Total 0.3 mg/dL (0.0-1.0); Blood Urea Nitrogen 18 mg/dL (9-16); Calcium 9.4 mg/dL (8.4-10.2); Carbon Dioxide 31 mmol/L (22-29); Chloride 106 mmol/L (96-108); Estimated Glomerular Filt Rate > 60; Glucose Random 82 mg/dL (60-115); Sodium 142 mmol/L (135-145); Total Protein 6.8 g/dL (6.5-8.0)
== END 2024-08-09 12:30 | disposition home or self-care (01) ==
LOC: HO.10HDL 12:29
PROVIDERS: Visit Provider Internal Medicine
DX: E11.9 Type 2 diabetes mellitus without complications (principal); R19.7 Diarrhea, unspecified; I10 Essential (primary) hypertension
CPT/HCPCS: 36415; 80053; 83036; 85025

== ENCOUNTER 2024-08-24 09:56 | Outpatient (AMB) | payer OTHER, SELFPAY ==
--- NOTE | 2024-08-24 10:19 | A.OFFVIS_ITS ---
Vital Signs 08/24/24 10:23 Height 5 ft Weight 140 lb BMI 27.3 Handedness Right Intake Visit Reasons: SUPPLY ASSISTANT- B/L shoulder pain Intake Note: Yanci is a 69 year old right hand dominant female who presents today as a new patient for a evaluation of her bilateral shoulder pain. No hx of injury/trauma. Patient reports ongoing pain for many years. She mentions that her pain is equal on both sides of the shoulder. Patient notices that her pain is on the lateral aspect of the shoulder. ROM is limited. She states that her pain is worse when she is doing over head reaching and reaching for her back. Patient has tried taking Tylenol and Ibuprofen/Motrin with mild relief. Program Associate Services: Program Associate Offered & Declined Allergies No Known Allergies Allergy (Verified 08/24/24 10:22) HPI HPI SUPPLY ASSISTANT- B/L shoulder pain: Details: Ms. Roe is a 69-year-old right-hand dominant female who presents to the office today for evaluation of bilateral shoulder pain. She has had this shoulder pain for years. She denies any injury or trauma. In the past she has been to roughly 3 rounds of physical therapy with mild relief. She is looking for additional treatment options today. She has not had any cortisone injections. [facility] Social History (Updated 08/24/24 @ 10:23 by Greta Mayer) Alcohol intake: current Alcohol intake frequency: holidays/special occasions only Patient Tobacco Use Status: Never used Tobacco Current occupational status: retired and disabled Current occupation: right hand dominant Review of Systems Const All systems reviewed & are unremarkable except as noted in HPI and below Physical Exam Vital Signs: BMI result Body Mass Index 27.3 Const General: cooperative, healthy appearing and no acute distress Resp Effort & Inspection: normal respiratory effort and able to speak in complete sentences Extrem Other: Right/Left shoulder: 80 degrees forward flexion and abduction. External rotation to end range. Positive cross-body reach. Positive empty can. NVI. Office Procedures AMB Joint Injection/Aspiration Joint Injection/Aspiration Primary Site: right shoulder Secondary Site: left shoulder Prep: site was prepped using aseptic technique, ethochloride spray was applied and injection warnings given Injected: 80 mg of, DepoMedrol, with 8 mL of (2% plain lidocaine) and in the subcromial space Approach Used: posterolateral Procedure: The patient tolerated the procedure well, but had some pain with the injection and there was some relief with the local anesthesia Coding - Bilateral Large Joint Procedure code (CPT) selection complete Assessment & Plan Assessment & Plan (1) Bilateral acromioclavicular joint arthritis: Code(s): M19.011 - Primary osteoarthritis, right shoulder; M19.012 - Primary osteoarthritis, left shoulder Category: Medical (2) Painful arc syndrome of right shoulder: Code(s): M75.101 - Unspecified rotator cuff tear or rupture of right shoulder, not specified as traumatic Category: Medical (3) Painful arc syndrome of left shoulder: Code(s): M75.102 - Unspecified rotator cuff tear or rupture of left shoulder, not specified as traumatic Category: Medical Plan The patient was offered a cortisone injection in bilateral shoulders with 80 mg of DepoMedrol. The patient was explained the risks, benefits, and alternatives to receiving this injection. After receiving consent for the injection, the patient had the procedure done while in the office today. The patient tolerated the procedure well with no complications. Due to the patient?s history of diabetes, they were instructed to monitor their blood glucose level. The patient was informed that they could see a rise in their numbers and if the numbers became too high, they were instructed to call their PCP. The patient was also informed that they could have facial flushing as a side effect of the injection, but this will pass. Follow-up will be PRN, or sooner if needed X-rays of the bilateral shoulders which were obtained while in the office today and were reviewed by me, Leola Reyes PA-C, revealed bilateral shoulder AC joint arthritis. Orders: Orders XR Shoulder Brock min 2V Today M25.511 - Pain in right shoulder, M25.512 - Pain in left shoulder Coding Level of Care Code New Pt Level 3 (93440) Diagnoses Bilateral acromioclavicular joint arthritis M19.011; M19.012 Painful arc syndrome of right shoulder M75.101 Painful arc syndrome of left shoulder M75.102 CPT Codes Coding - - Bilateral Large Joint: 53277 - Bilateral Large Joint ([id number])
[2024-08-24 10:23] VITALS: BMI 27.3
--- OUTSIDE RECORDS SUMMARY | 2024-08-24 10:40 | XMS_ITS ---
Author Organization [facility] Address [address] [place] [id number] Care Team Providers Care Systems Requirements Planner Name Role Phone Kristi Perkins Primary Care Provider Unavailab Hunter Quiroga [phone] REASON FOR VISIT bowel prep Medications Medication [...] Active Encounters Encounter Location Date Provider Diagnosis [address] [address] 07/26/2024 Hunter Chapman Plan Of Treatment Medication [...] Provider Name:Hunter Chapman , 09/24/2024 02:20:00 PM, [address] [place] [address] , [place], [place], [id number], Progress Notes * EDUARDO ORTIZDOB:1955 (69 yo F)Acc No.[id number]:07/26/2024 Patient:EDUARDO ZAPATA :1955???Age:69 Y???Sex:Female Address:[address] [place] [address] [place], [address] * Refills? Start Dulcolax (colon prep) Tablet [...] true * Date:? Generated for Luis bennett/Naomi/Aramitting on:?08/24/2024 10:40 AM EDT
== END 2024-08-24 10:59 | disposition home or self-care (01) ==
LOC: HO.HOS 09:57
PROVIDERS: Visit Provider Physician Assistant
DX: M19.011 Primary osteoarthritis, right shoulder (principal); M19.012 Primary osteoarthritis, left shoulder; M75.101 Unspecified rotator cuff tear or rupture of right shoulder, not specified as traumatic; M75.102 Unspecified rotator cuff tear or rupture of left shoulder, not specified as traumatic; E11.9 Type 2 diabetes mellitus without complications
CPT/HCPCS: 20610; 99203

== ENCOUNTER 2024-08-24 10:07 | Outpatient (REF) | payer OTHER, SELFPAY ==
--- NOTE | ~2024-08-24 | XR_ITS ---
CLINICAL HISTORY: M25.511 - Pain in right shoulder 6 view bilateral shoulder Comparison: None Findings: Bones intact. No dislocations. There are chronic degenerative changes of the acromioclavicular joints. No erosions. No radiopaque foreign body. There is osteophytic squaring of the right greater tuberosity. This may indicate rotator cuff pathology. IMPRESSION: 1. No acute findings. Osteophytic spurring of the right greater tuberosity may indicate rotator cuff pathology. This document has been electronically signed by: Goyo Chacko MD on 08/24/2024 13:00:06
== END 2024-08-24 10:08 | disposition home or self-care (01) ==
LOC: HO.HOSX 10:07
PROVIDERS: Visit Provider Physician Assistant
DX: M75.101 Unspecified rotator cuff tear or rupture of right shoulder, not specified as traumatic (principal); M75.102 Unspecified rotator cuff tear or rupture of left shoulder, not specified as traumatic; M25.511 Pain in right shoulder; M25.512 Pain in left shoulder; M19.011 Primary osteoarthritis, right shoulder; M19.012 Primary osteoarthritis, left shoulder
CPT/HCPCS: 20610; 73030; 99202; J1010; J2003

== ENCOUNTER → 2024-08-24 10:09 | Outpatient (BNV) | payer OTHER, SELFPAY | PROVIDERS: Visit Provider Radiology Diagnostic Radiology | DX: M25.711 Osteophyte, right shoulder (principal) | CPT/HCPCS: 73030 ==

== ENCOUNTER 2024-09-24 11:08 | Day surgery (SDC) | payer OTHER, SELFPAY ==
--- OUTSIDE RECORDS SUMMARY | 2024-08-27 08:56 | XMS_ITS ---
Author Organization 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 Name Role Phone Kristi Perkins Primary Care Provider Unavailab Hunter Quiroga [phone] REASON FOR VISIT bowel prep Medications Medication [...] Active Encounters Encounter Location Date Provider Diagnosis [address] [address] 07/26/2024 Hunter Chapman Plan Of Treatment Medication [...] Provider Name:Hunter Chapman , 09/24/2024 02:20:00 PM, [address] [place] [address] , [place], [place], [phone], Progress Notes * EDUARDO ORTIZDOB:1955 (69 yo F)Acc No.[id number]:07/26/2024 Patient:EDUARDO ZAPATA :1955???Age:69 Y???Sex:Female Address:[address] [place] [address] [place], [address] * Refills? Start Dulcolax (colon prep) Tablet [...] true * Date:? Generated for Luis bennett/Naomi/Aramitting on:?08/27/2024 08:55 AM EDT
[2024-09-24 06:59] VITALS: BMI 31.9
[2024-09-24 11:13] VITALS: BP 171/69; PULSE 108; RESP 20; TEMP 36.9; O2SAT 98; BMI 27.4
[2024-09-24 11:24] LABS: Glucose, Whole Blood 100 mg/dL (60-115)
[2024-09-24] MEDS: Lactated Ringers 1,000 ML 100 ML IVCONT (11:34)
--- NOTE | 2024-09-24 11:57 | HO.ANESPROP2 ---
Documented by User: Lucia Sam NP 09/20/24 09:59 HPI - Anesthesia Eval Consult details Narrative: 69yo F for Colonoscopy PMFSH Active Problems Active Problems: All Active Problems Painful arc syndrome of left shoulder (Acute) Painful arc syndrome of right shoulder (Acute) Bilateral acromioclavicular joint arthritis (Acute) Hypercholesterolemia (Acute) HTN (hypertension) (Acute) Cholelithiasis (Acute) Borderline diabetic (Acute) Gastroenteritis (Acute) Past Medical History Medical History (Updated 09/20/24 @ 09:57 by Lucia Sam NP) Diabetes Hypercholesterolemia HTN (hypertension) Surgical History Surgical History (Updated 09/24/24 @ 11:24 by Danyell Rinaldi RN) Hx of colonoscopy H/O tubal ligation Social History Social History (Updated 08/24/24 @ 10:23 by Greta Mayer) Alcohol intake: current Alcohol intake frequency: does not drink Patient Tobacco Use Status: Never used Tobacco Have you been hit, kicked, punched, or otherwise hurt by someone within the past year? If so, by whom?: No Are you DNR?: No Advance Directives: No Advance Directives Information Provided: Yes Current occupational status: retired and disabled Current occupation: right hand dominant Meds Allergies Allergy/AdvReac Type Severity Reaction Status Date / Time No Known Allergies Allergy Verified 08/24/24 10:22 Home Medications ?Medication ?Instructions ?Recorded ?Confirmed ?Last Taken ?Type atorvastatin 40 mg tablet 40 mg PO BEDTIME 10/26/22 09/24/24 10/25/22 History hydrochlorothiazide 25 mg tablet 25 mg PO DAILY 10/26/22 09/24/24 09/24/24 History losartan 50 mg tablet 50 mg PO DAILY 10/26/22 09/24/24 09/24/24 History metformin 500 mg tablet 500 mg PO DAILY 10/26/22 09/24/24 10/25/22 History Exam Pertinent Lab Results Pertinent Lab Results: Laboratory Tests 08/09/24 13:00 WBC 6.1 Hgb 12.4 Hct 37.5 Plt Count 131 L Sodium 142 Potassium 4.0 Chloride 106 Carbon Dioxide 31 H BUN 18 H Creatinine 0.72 Assessment and Plan Assessment Anesthesia Assessment: Chart Reviewed Documented by User: Irais Ramirez DO 09/24/24 11:58 [facility] Past Medical History Medical History (Updated 09/20/24 @ 09:57 by Lucia Sam NP) Diabetes Hypercholesterolemia HTN (hypertension) Family History Family history of problems with anesthesia: No Surgical History Surgical History (Updated 09/24/24 @ 11:24 by Danyell Rinaldi RN) Hx of colonoscopy H/O tubal ligation History of Problems with Anesthesia: No Social History Social History (Updated 08/24/24 @ 10:23 by Greta Mayer) Alcohol intake: current Alcohol intake frequency: does not drink Patient Tobacco Use Status: Never used Tobacco Have you been hit, kicked, punched, or otherwise hurt by someone within the past year? If so, by whom?: No Are you DNR?: No Advance Directives: No Advance Directives Information Provided: Yes Current occupational status: retired and disabled Current occupation: right hand dominant Meds Allergies Allergy/AdvReac Type Severity Reaction Status Date / Time No Known Allergies Allergy Verified 08/24/24 10:22 Home Medications ?Medication ?Instructions ?Recorded ?Confirmed ?Last Taken ?Type atorvastatin 40 mg tablet 40 mg PO BEDTIME 10/26/22 09/24/24 10/25/22 History hydrochlorothiazide 25 mg tablet 25 mg PO DAILY 10/26/22 09/24/24 09/24/24 History losartan 50 mg tablet 50 mg PO DAILY 10/26/22 09/24/24 09/24/24 History metformin 500 mg tablet 500 mg PO DAILY 10/26/22 09/24/24 10/25/22 History Exam Exam Date and Time: 09/24/24 1157 Height,Weight and Vital Signs: Height 5 ft Weight 63.6 kg Vital Signs Temperature 98.5 F 09/24/24 11:13 Pulse Rate 108 H 09/24/24 11:13 Respiratory Rate 20 09/24/24 11:13 Blood Pressure 171/69 H 09/24/24 11:13 Pulse Oximetry 98 09/24/24 11:13 Oxygen Delivery Method Room Air 09/24/24 11:13 Temperature 98.5 F 09/24/24 11:13 Pulse Rate 108 H 09/24/24 11:13 Respiratory Rate 20 09/24/24 11:13 Blood Pressure 171/69 H 09/24/24 11:13 Pulse Oximetry 98 09/24/24 11:13 Oxygen Delivery Method Room Air 09/24/24 11:13 Airway Mallampati Class: III TM Dist: >3cm Neck ROM: Full Loose/Missing/Broken Teeth: Yes (several missing molars but nothing loose) Heart: S1S2 Lungs: CTAB Assessment and Plan Assessment Anesthesia Assessment: Anesthesia Plan Discussed and Chart Reviewed Final Anesthetic Review Family History of Problems with Anesthesia: No History of Problems with Anesthesia: No NPO: Yes ASA Class: II Final Preanesthetic Review: No Changes in Pt Med Stat, Meds/Allgs Chart Reviewed, Consent Obtained/Reviewed (interpreter and translator at bedside for translation) and Anes Risks/Benef Reviewed Patient Risk: Low Procedure Risk: Low Anesthetic Plan Anesthetic Plan: MAC: and Agree w/ Assess. and Plan Disposition: Standard PACU
[2024-09-24 14:05] VITALS: BP 124/68; PULSE 91; RESP 16; TEMP 36.5; O2SAT 96
--- NOTE | 2024-09-24 14:15 | P.BOP_ITS ---
Brief Operative Note Date of Service: 09/24/24 Pre-op diagnosis: + Cologuard Post-op diagnosis: other (Diverticulosis) Procedure: Colonoscopy to the cecum and TI Surgeon: Hunter Chapman MD Anesthesia: MAC Was an [employer] Supervisor used for this Procedure?: No Estimated blood loss (mL): 0 Pathology: none sent Condition: stable Disposition: PACU
[2024-09-24 14:20] VITALS: BP 138/71; PULSE 85; RESP 16; O2SAT 97
[2024-09-24 14:36] VITALS: BP 140/72; PULSE 56; RESP 18; TEMP 36.6; O2SAT 96
--- NOTE | 2024-09-24 14:47 | OP_ITS ---
DATE OF SERVICE: 09/24/2024 SURGEON: Hunter Chapman MD INDICATIONS: The patient presents for evaluation of a positive Cologuard test. Full consent has been obtained from her for this, including risks of bleeding and perforation. PREOPERATIVE DIAGNOSIS: POSTOPERATIVE DIAGNOSIS: PROCEDURE PERFORMED: Colonoscopy to cecum and terminal ileum. ESTIMATED BLOOD LOSS: COMPLICATIONS: ANESTHESIA: Monitored anesthesia care. ASSISTANTS: SPECIMENS: PREOPERATIVE DIAGNOSES: Colorectal cancer screening due to a positive Cologuard test. POSTOPERATIVE DIAGNOSES: Colorectal cancer screening due to a positive Cologuard test, diverticulosis, and internal hemorrhoids. DESCRIPTION OF PROCEDURE: The patient was placed in the left lateral decubitus position. The digital rectal exam revealed no abnormalities. The Olympus video pediatric colonoscope was entered into the rectum and advanced easily to the cecum. Once in the cecum I did identify normal-appearing cecal pouch with appendiceal orifice and a normal-appearing ileocecal valve. The terminal ileum was cannulated and appeared normal. Scope was withdrawn back in the colon. The entire cecum and ileocecal valve appeared normal. The scope was slowly withdrawn assessing all mucosal surfaces carefully. Preparation was excellent. I did not visualize any sign of polyps, colitis, nor angiodysplasia. There was a mild amount of sigmoid diverticulosis. In the rectum, scope was retroflexed visualizing internal hemorrhoids but no other pathology. The rectal mucosa appeared normal. The scope was straightened and withdrawn from the patient. She tolerated the procedure well and was returned to the recovery area in stable condition. IMPRESSION: 1. Mild diverticulosis. 2. Internal hemorrhoids. PLAN: Given today's negative exam, I would recommend a followup colonoscopy theoretically in 10 years, although at that point, she would be almost 80, and we would clearly need to take her clinical condition into account. She will otherwise see me on a p.r.n. basis. Hunter Chapman MD RMAnjelica/DIGNA / [phone]
== END 2024-09-24 15:11 | disposition home or self-care (01) ==
PROVIDERS: PCP Internal Medicine; Visit Provider Internal Medicine
PROC: 0DJD8ZZ Inspection of Lower Intestinal Tract, Via Natural or Artificial Opening Endoscopic (ICD-10-PCS; CPT 45378; principal; 2024-09-24 12:30)
DX: R19.5 Other fecal abnormalities (principal); K57.30 Diverticulosis of large intestine without perforation or abscess without bleeding; K64.8 Other hemorrhoids; K80.20 Calculus of gallbladder without cholecystitis without obstruction; I10 Essential (primary) hypertension; E78.5 Hyperlipidemia, unspecified; E11.9 Type 2 diabetes mellitus without complications; Z79.84 Long term (current) use of oral hypoglycemic drugs; Z79.899 Other long term (current) drug therapy; Z98.51 Tubal ligation status
CPT/HCPCS: 45378; 82947; J2704